=== PATIENT | male | born 1965 | race Caucasian/White ===

== ENCOUNTER 2022-12-07 00:08 | Emergency (ER) | payer SELFPAY ==
[2022-12-07] MEDS ORDERED: Sodium Chloride 0.9% 1,000 ML ONE ×2 (00:59→02:17)
[2022-12-07 01:06] LABS: #Basophils 0.1 thou/uL (0.0-0.2); #Eosinphils 0.1 thou/uL (0.0-0.7); #Lymphocytes 1.7 thou/uL (1.20-3.40); #Monocytes 0.5 thou/uL (0.11-0.59); #Neutrophils 10.8 thou/uL (1.40-6.50); %Basophils 0.5 % (0.0-1.0); %Eosinophils 0.6 % (0.0-10.0); %Lymphocytes 13.2 % (21.0-51.0); %Monocytes 3.8 % (0.0-10.0); %Neutrophils 81.9 % (42.0-75.0); Hemoglobin 16.9 g/dL (14.0-18.0); Mean Corpuscular HGB CONC 30.4 g/dL (32.0-36.0); Mean Corpuscular Hemoglobin 30.7 pg (27.0-31.0); Mean Corpuscular Volume 100.8 fl (78.0-98.0); Mean Platelet Volume 8.5 fL (7.4-10.4); Platelet Count 249 10x3/uL (130-400); RBC Distribution Width 12.9 % (11.5-14.5); White Blood Cell (WBC) Count 13.1 10x3/uL (4.8-10.8)
[2022-12-07 01:36] LABS: ALT (SGPT) 43 U/L (8-55); AST (SGOT) 73 U/L (5-34); Albumin 4.3 g/dL (3.5-5.0); Alkaline Phosphatase 54 U/L (40-110); Anion Gap 25 mmol/L (10-20); BUN (Urea Nitrogen) 10 mg/dL (8.4-25.7); Bilirubin, Total 0.2 mg/dL (0.2-1.2); Calc. Creatinine Clearance 0 mL/min (70-130); Calcium 9.4 mg/dL (7.8-10.44); Carbon Dioxide 15 mmol/L (22-29); Chloride 104 mmol/L (98-107); Estimated GFR 84; Globulin 4.2 g/dL (2.4-3.5); Glucose 226 mg/dL (70-105); Potassium 3.8 mmol/L (3.5-5.1); Protein, Total 8.5 g/dL (6.0-8.3); Sodium 140 mmol/L (136-145)
[2022-12-07 01:47] LABS: Amphetamine Not Detected (NotDetected); Barbiturates Screen Not Detected (NotDetected); Benzodiazepine Screen Not Detected (NotDetected); Cocaine Metabolite Screen Not Detected (NotDetected); Medtox Control Line Valid? VALID (VALID); Methadone Not Detected (NotDetected); Methamphetamine Detected (NotDetected); Opiate Screen Not Detected (NotDetected); Oxycodone Screen Not Detected (NotDetected); Phencyclidine (PCP) Not Detected (NotDetected); THC/Cannabinoid Screen Detected (NotDetected); Tricyclic Screen Not Detected (NotDetected)
[2022-12-07 01:58] LABS: Acetaminophen Less than 10.0 mcg/mL (10.0-30.0); Alcohol 114 mg/dL (Less than 10); Magnesium 2.4 mg/dL (1.6-2.6); Salicylate Less than 8.0 mg/dL (15.0-30.0)
[2022-12-07] MEDS ORDERED: Sodium Chloride 0.9% 250 ML 250 ML ONE (02:17)
[2022-12-07 02:25] LABS: Base Excess-Venous -2.9 mmol/L (-2.0 to 3.0); Bicarbonate (HCO3v) 22.4 mmol/L (22.0-28.0); CO2 Tension (PvCO2) 40.2 mmHg (42.0-51.0); Calcium, Ionized 1.04 mmol/L (1.15-1.33); Chloride 109 mmol/L (98-107); Hemoglobin - Calc 16.1 g/dL (14.0-18.0); Potassium 4.2 mmol/L (3.5-5.1); Sodium 143 mmol/L (138-145); T. Carbon Dioxide 23.7 mmol/L (22.0-28.0); vO2 Saturation-calc 94.9 % (60.0-85.0)
[2022-12-07 04:24] LABS: Lactic Acid 1.3 mmol/L (0.5-2.2)
== END 2022-12-07 06:05 | disposition home or self-care (01) ==
LOC: MADERS 00:08
DX: T40.2X1A Poisoning by other opioids, accidental (unintentional), initial encounter (principal); F10.10 Alcohol abuse, uncomplicated; F12.10 Cannabis abuse, uncomplicated; F15.10 Other stimulant abuse, uncomplicated; D72.829 Elevated white blood cell count, unspecified; F17.210 Nicotine dependence, cigarettes, uncomplicated; Y90.9 Presence of alcohol in blood, level not specified
CPT/HCPCS: 51701; 71045; 80053; 80306; 80307; 82330; 82803; 83605; 83735; 83880; 84484; 85025; 93005; J7050

== ENCOUNTER 2023-07-21 23:59 | Emergency (ER) | payer SELFPAY ==
[2023-07-22] MEDS ORDERED: Clindamycin/D5W 900 mg/50 ml Premix Bag ONE (00:34)
[2023-07-22] MEDS ORDERED: Sodium Chloride 0.9% 1,000 ML ONE (00:34)
[2023-07-22] MEDS ORDERED: Ondansetron PF 4 MG/2 ML Vial ONE (00:34)
[2023-07-22] MEDS ORDERED: Morphine 4 MG/ML VIAL ONE (00:34)
[2023-07-22 00:37] LABS: #Basophils 0.1 thou/uL (0.0-0.2); #Eosinphils 0.1 thou/uL (0.0-0.7); #Lymphocytes 2.3 thou/uL (1.20-3.40); #Monocytes 0.7 thou/uL (0.11-0.59); #Neutrophils 6.9 thou/uL (1.40-6.50); %Basophils 0.7 % (0.0-1.0); %Eosinophils 0.8 % (0.0-10.0); %Lymphocytes 22.5 % (21.0-51.0); %Monocytes 7.1 % (0.0-10.0); %Neutrophils 68.9 % (42.0-75.0); Hematocrit 52.4 % (42.0-52.0); Hemoglobin 16.6 g/dL (14.0-18.0); Mean Corpuscular HGB CONC 31.6 g/dL (32.0-36.0); Mean Corpuscular Hemoglobin 30.6 pg (27.0-31.0); Mean Corpuscular Volume 96.6 fl (78.0-98.0); Mean Platelet Volume 7.5 fL (7.4-10.4); Platelet Count 271 10x3/uL (130-400); RBC Distribution Width 12.6 % (11.5-14.5); Red Blood Cell (RBC) Count 5.42 mill/uL (4.70-6.10); White Blood Cell (WBC) Count 10.1 10x3/uL (4.8-10.8)
[2023-07-22 00:57] LABS: ALT (SGPT) 27 U/L (8-55); AST (SGOT) 33 U/L (5-34); Alkaline Phosphatase 41 U/L (40-110); Anion Gap 13 mmol/L (10-20); BUN (Urea Nitrogen) 10 mg/dL (8.4-25.7); Bilirubin, Total 0.6 mg/dL (0.2-1.2); Calc. Creatinine Clearance 0 mL/min (70-130); Calcium 9.7 mg/dL (7.8-10.44); Carbon Dioxide 26 mmol/L (22-29); Chloride 102 mmol/L (98-107); Estimated GFR 100; Globulin 3.7 g/dL (2.4-3.5); Glucose 113 mg/dL (70-105); Potassium 4.2 mmol/L (3.5-5.1); Protein, Total 7.7 g/dL (6.0-8.3); Sodium 137 mmol/L (136-145)
== END 2023-07-22 01:57 | disposition home or self-care (01) ==
LOC: MADERS 23:59
DX: L03.116 Cellulitis of left lower limb (principal); L85.3 Xerosis cutis; F17.210 Nicotine dependence, cigarettes, uncomplicated
CPT/HCPCS: 80053; 83605; 85025; 87040; 96365; 96375; J2270; J2405; J3490; J7050

== ENCOUNTER 2024-03-14 15:40 | Emergency (ER) | payer SELFPAY ==
[2024-03-14] MEDS ORDERED: cefTRIAXone (ROCEPHIN) 2 GM VIAL ONE (16:03)
[2024-03-14] MEDS ORDERED: Vancomycin 1 GM VIAL ONE (16:03)
[2024-03-14] MEDS ORDERED: Sodium Chloride 0.9% 100 ML ONE (16:04)
[2024-03-14] MEDS ORDERED: Sodium Chloride 0.9% 250 ML 250 ML ONE (16:04)
[2024-03-14] MEDS ORDERED: Ondansetron PF 4 MG/2 ML Vial ONE (16:52)
[2024-03-14] MEDS ORDERED: Morphine 4 MG/ML VIAL ONE (16:52)
[2024-03-14] MEDS ORDERED: Sodium Chloride 0.9% 500 ML ONE (17:15)
== END 2024-03-14 18:06 | disposition home or self-care (01) ==
LOC: MADERS 15:40
DX: S81.831A Puncture wound without foreign body, right lower leg, initial encounter (principal); L03.115 Cellulitis of right lower limb; F17.210 Nicotine dependence, cigarettes, uncomplicated; W54.0XXA Bitten by dog, initial encounter
CPT/HCPCS: 96365; 96367; 96375; J0696; J2270; J2405; J3370; J3490; J7030; J7050